=== PATIENT | male | born 1995 | race Caucasian/White ===

== ENCOUNTER 2016-07-30 15:40 | Emergency (ER) | payer OTHER ==
[2016-07-30 16:05] VITALS: BP 134/75
--- NOTE | 2016-07-30 16:12 | UC ---
Throat Pain/Nasal Nando HPI - HPI Summary HPI Summary: SORE THROAT, SWOLLEN TONSILS SINCE YESTERDAY. MILD FEVER. BILATERAL EAR ACHE. - History of Current Complaint Chief Complaint: UCRespiratory Stated Complaint: SORE THROAT Time Seen by Provider: 07/30/16 15:42 Hx Obtained From: Patient, Family/Brick [employer] Onset/Duration: Gradual Onset, Lasting Days, Still Present Severity: Moderate Cough: None Associated Signs & Symptoms: Positive: Dysphagia, Hoarseness, Fever - Epiglottits Risk Factors Epiglottis Risk Factors: Negative - Allergies/Home Medications Allergies/Adverse Reactions: Allergies Allergy/AdvReac Type Severity Reaction Status Date / Time No Known Allergies Allergy Verified 07/30/16 15:52 Home Medications: Home Medications Acetaminophen [Acetaminophen Extra Stren] 1,000 mg PO PRN 07/30/16 [History] Ibuprofen [Ibuprofen 200 MG] 400 mg PO PRN 07/30/16 [History] [id number] [DAY TIME/NITE TIME COLD (Liquid)] 1 mis PO PRN 07/30/16 [History] PMH/Surg Hx/FS Hx/Imm Hx Previously Healthy: Yes GI/ History Of: Reports: Ulcer - stomach - Surgical History Surgical History: None - Family History Known Family History: Negative: Respiratory Disease - Social History Occupation: Employed Full-time Lives: With Family Alcohol Use: Weekly Substance Use Type: Marijuana Substance Use Comment - Amount & Last Used: every day Smoking Status (MU): Heavy Every Day Tobacco Smoker Type: Cigarettes Amount Used/How Often: 1/2 - 1 ppd Length of Time of Smoking/Using Tobacco: since age 13 Have You Smoked in the Last Year: Yes Review of Systems Constitutional: Fever Skin: Negative Eyes: Negative ENT: Sore Throat, Ear Ache Respiratory: Negative Cardiovascular: Negative Gastrointestinal: Negative Genitourinary: Negative Motor: Negative Neurovascular: Negative Musculoskeletal: Negative Neurological: Negative Psychological: Negative All Other Systems Reviewed And Are Negative: Yes Physical Exam Triage Information Reviewed: Yes Appearance: No Pain Distress, Well-Nourished, Ill-Appearing - MILDLY Vital Signs: Initial Vital Signs Temp 99.6 F 07/30/16 15:45 Pulse 75 07/30/16 15:45 Resp 18 07/30/16 15:45 BP 134/75 07/30/16 15:45 Pulse Ox 97 07/30/16 15:45 Vital Signs Reviewed: Yes Eye Exam: Normal ENT: Positive: Hearing grossly normal, Pharyngeal erythema, TMs normal, Tonsillar swelling, Tonsillar exudate Dental Exam: Normal Neck exam: Normal Neck: Positive: Supple, Nontender, No Lymphadenopathy Respiratory Exam: Normal Respiratory: Positive: Chest non-tender, Lungs clear, Normal breath sounds, No respiratory distress Cardiovascular Exam: Normal Cardiovascular: Positive: RRR, No Murmur Abdominal Exam: Normal Musculoskeletal Exam: Normal Neurological Exam: Normal Psychological Exam: Normal Skin Exam: Normal Throat Pain/Nasal Course/Dx - Differential Dx/Diagnosis Differential Diagnosis/HQI/PQRI: Pharyngitis, Sinusitis, Tonsillitis, URI Provider Diagnoses: STREP TONSILLITIS Discharge - Discharge Plan Condition: Stable Disposition: HOME Prescriptions: Amoxicillin/Clavulanate TAB* [Augmentin TAB 875*] 875 mg PO BID #20 tab Patient Education Materials: Strep Throat (ED) Forms: *Work Release Referrals: MEG Ordoñez [Primary Care Provider] -
== END 2016-07-30 16:12 | disposition home or self-care (01) ==
LOC: UCCORT 15:40
DX: J03.00 Acute streptococcal tonsillitis, unspecified (principal); F12.90 Cannabis use, unspecified, uncomplicated; F17.210 Nicotine dependence, cigarettes, uncomplicated
CPT/HCPCS: 87651; 99202; G0463

== ENCOUNTER 2016-09-03 09:44 | Emergency (ER) | payer OTHER ==
[2016-09-03] MEDS ORDERED: Al Hydrox/Mg Hydrox/Simet LIQ* 30 ML UDC PO ONE (10:27)
[2016-09-03 10:28] VITALS: BP 106/71
[2016-09-03] MEDS ORDERED: Lidocaine 2% VISCOUS* 15 ML UDC PO ONE (10:28)
--- NOTE | 2016-09-03 10:54 | UC ---
Abdominal Pain Male HPI - HPI Summary HPI Summary: Patient with a history of peptic ulcer presents to with gnawing intermittent pain over the epigastric region since this morning. He notes to eating hot sauce last evening and while previously on Prilosec for his symptoms, he has not taken his medication for several months. His MD was in [facility] and recently moved here and currently does not have a PCP. He took the Prilosec for 5 months with relief. He notes to associated nausea with his epigastric pain. Denies any other abdominal pain. Takes no medications and is otherwise healthy. Denies V/C/D. - History of Current Complaint Chief Complaint: GI Stated Complaint: ABDOMINAL PAIN,VOMITING Time Seen by Provider: 09/03/16 10:08 Hx Obtained From: Patient Onset/Duration: Sudden Onset Severity Initially: Moderate Severity Currently: Moderate Pain Intensity: 7 Pain Scale Used: 0-10 Numeric Location: Epigastric Radiates: No Character: Aching, Burning, Tearing Aggravating Factor(s):: Food Alleviating Factor(s): Nothing Associated Signs And Symptoms: Positive: Other - nausea - Risk Factors Testicular Torsion: Negative Cardiac Risk Factors: Negative - Allergies/Home Medications Allergies/Adverse Reactions: Allergies Allergy/AdvReac Type Severity Reaction Status Date / Time No Known Allergies Allergy Verified 09/03/16 10:05 Home Medications: Home Medications Cyanocobalamin TAB* [Vitamin B12 TAB*] 1 tab DAILY 09/03/16 [History Confirmed 09/03/16] PMH/Surg Hx/FS Hx/Imm Hx Previously Healthy: Yes - Surgical History Surgical History: None - Family History Known Family History: Negative: Respiratory Disease - Social History Occupation: Unemployed, Employed Full-time Lives: With Family Alcohol Use: Weekly Alcohol Amount: Weekend Substance Use Type: Marijuana Substance Use Comment - Amount & Last Used: every day Smoking Status (MU): Heavy Every Day Tobacco Smoker Type: Cigarettes Amount Used/How Often: 1/2 - 1 ppd Length of Time of Smoking/Using Tobacco: since age 13 Have You Smoked in the Last Year: Yes - Immunization History Most Recent Influenza Vaccination: NONE 2015 Most Recent Tetanus Shot: UTD Most Recent Pneumonia Vaccination: N/A Review of Systems Constitutional: Negative Skin: Negative Respiratory: Negative Cardiovascular: Negative Gastrointestinal: Abdominal Pain - epigastric pain Motor: Negative Neurovascular: Negative Musculoskeletal: Negative Psychological: Negative All Other Systems Reviewed And Are Negative: Yes Physical Exam Triage Information Reviewed: Yes Appearance: Well-Appearing, No Pain Distress, Well-Nourished Vital Signs: Initial Vital Signs Temp 96.7 F 09/03/16 10:06 Pulse 74 09/03/16 10:06 Resp 16 09/03/16 10:06 BP 106/71 09/03/16 10:06 Pulse Ox 99 09/03/16 10:06 Vital Signs Reviewed: Yes Eye Exam: Normal Eyes: Positive: Conjunctiva Clear Neck exam: Normal Neck: Positive: Nontender, No Lymphadenopathy Respiratory Exam: Normal Respiratory: Positive: Chest non-tender, Lungs clear Cardiovascular Exam: Normal Cardiovascular: Positive: RRR Musculoskeletal Exam: Normal Musculoskeletal: Positive: Strength Intact Psychological Exam: Normal Psychological: Positive: Normal Response To Family Skin Exam: Normal Abd Pain Male Course/Dx - Course Course Of Treatment: Patient presents with epigastric pain not relieved with negar selzer. Hx of peptic ulcer. No medications currently and recently moved from [facility] - with no primary care. Prilosec, zofran and maalox prescribed. Patient OK with discharge and will seek PCP at [facility]. Improvement with maalox and viscous lidocaine in office. - Differential Dx/Clinical Impression Differential Diagnosis/HQI/PQRI: Other - peptic ulcer, gastric ulcer, nausea Provider Diagnoses: Peptic Ulcer Discharge - Discharge Plan Condition: Stable Disposition: HOME Prescriptions: Al Hydrox/Mg Hydrox/Simet LIQ* [Maalox Plus*] 30 ml PO Q6H PRN #300 udc MDD 120 PRN Reason: Heartburn Omeprazole CAP* [Prilosec CAP* 20 MG] 20 mg PO DAILY #30 cap. Ondansetron ODT TAB* [Zofran 4 MG Odt TAB*] 4 mg PO Q6H PRN #12 tab.odt MDD 4 PRN Reason: Nausea Patient Education Materials: Peptic Ulcer (ED), Diet for Stomach Ulcers and Gastritis (ED) Referrals: MEG Ordoñez [Primary Care Provider] - Additional Instructions: Follow up with PCP PAYAM If you develop worsening symptoms, return to UC immediately. Maalox for breakthrough pain related to ulcer/GERD symptoms Zofran as needed for any nausea Prilosec daily until follow up with PCP
== END 2016-09-03 10:57 | disposition home or self-care (01) ==
LOC: UCCORT 09:44
DX: K27.9 Peptic ulcer, site unspecified, unspecified as acute or chronic, without hemorrhage or perforation (principal); F17.210 Nicotine dependence, cigarettes, uncomplicated
CPT/HCPCS: 99212; A9270-GY; G0463

== ENCOUNTER 2017-02-13 11:25 | Emergency (ER) | payer OTHER ==
[2017-02-13 11:51] VITALS: BP 130/65
--- NOTE | 2017-02-13 12:26 | UC ---
Lower Extremity/Ankle HPI - HPI Summary HPI Summary: pt c/o left great toe pain s/p stubbing toe. Pt states he has been trying to "rip" the toe nail off of left great toe as he reports that it has "been ripped off" . - History of Current Complaint Chief Complaint: UCLowerExtremity Stated Complaint: LEFT BIG TOE SWOLLEN Time Seen by Provider: 02/13/17 11:55 Hx Obtained From: Patient Onset/Duration: Sudden Onset, Lasting Days, Still Present, Worse Since - onset Severity Initially: Moderate Severity Currently: Moderate Aggravating Factor(s): Standing, Ambulation Alleviating Factor(s): Rest, Elevation - Allergies/Home Medications Allergies/Adverse Reactions: Allergies Allergy/AdvReac Type Severity Reaction Status Date / Time No Known Allergies Allergy Verified 02/13/17 11:51 Home Medications: Home Medications NK [No Home Medications Reported] 02/13/17 [History Confirmed 02/13/17] PMH/Surg Hx/FS Hx/Imm Hx Previously Healthy: Yes - Surgical History Surgical History: None - Family History Known Family History: Negative: Respiratory Disease - Social History Occupation: Employed Full-time Lives: With Family Alcohol Use: Weekly Alcohol Amount: Weekend Substance Use Type: Marijuana Substance Use Comment - Amount & Last Used: every day Smoking Status (MU): Heavy Every Day Tobacco Smoker Type: Cigarettes Amount Used/How Often: 1/2 - 1 ppd Length of Time of Smoking/Using Tobacco: since age 13 Have You Smoked in the Last Year: Yes - Immunization History Most Recent Influenza Vaccination: NOT CURRENT Most Recent Tetanus Shot: UTD Most Recent Pneumonia Vaccination: N/A Review of Systems Constitutional: Negative Skin: Other - erythema, left great toe, swelling left great toe Eyes: Negative ENT: Negative Respiratory: Negative Cardiovascular: Negative Gastrointestinal: Negative Genitourinary: Negative Motor: Decreased ROM - left great toe Neurovascular: Negative Musculoskeletal: Decreased ROM - left great toe,, Edema - left great toe, Other : - mild erythema left great toe Neurological: Negative Psychological: Negative Is Patient Immunocompromised?: No All Other Systems Reviewed And Are Negative: Yes Physical Exam Triage Information Reviewed: Yes Appearance: Well-Appearing Vital Signs: Initial Vital Signs Temp 98.1 F 02/13/17 11:44 Pulse 71 02/13/17 11:44 Resp 18 02/13/17 11:44 BP 130/65 02/13/17 11:44 Pulse Ox 98 02/13/17 11:44 Vital Signs Reviewed: Yes Eye Exam: Normal ENT Exam: Normal Dental Exam: Normal Neck exam: Normal Respiratory Exam: Normal Musculoskeletal Exam: Other Musculoskeletal: Positive: ROM Limited @ - left great toe, Edema @ - left great toe,, Other: - lefyt great toe nail, is lifted off nail bed, Neurological Exam: Normal Psychological Exam: Normal Skin Exam: Other - mild erythema, left great toe Lower Extremity Course/Dx - Course Course Of Treatment: IMPRESSION: NO ACUTE OSSEOUS INJURY. IF SYMPTOMS PERSIST, RECOMMEND REPEAT IMAGING. PLAIN FILM FINDINGS OF OSTEOMYELITIS ARE RELATIVELY LATE FINDINGS. IF THERE IS PERSISTENT. CLINICAL CONCERN FOR OSTEOMYELITIS, RECOMMEND CORRELATION WITH FOLLOWUP IMAGING,. THREE-PHASE BONE SCANNING, WHITE BLOOD CELL SCAN, AND/OR MRI OF THE AFFECTED REGION. - Differential Dx/Diagnosis Differential Diagnosis/HQI/PQRI: Fracture (Closed), Osteomyelitis Provider Diagnoses: possible osteomylitis. Pt directed to go to ER for further evaluation and testing. IMPRESSION: NO ACUTE OSSEOUS INJURY. IF SYMPTOMS PERSIST, RECOMMEND REPEAT IMAGING. PLAIN FILM FINDINGS OF OSTEOMYELITIS ARE RELATIVELY LATE FINDINGS. IF THERE IS PERSISTENT. CLINICAL CONCERN FOR OSTEOMYELITIS, RECOMMEND CORRELATION WITH FOLLOWUP IMAGING,. THREE-PHASE BONE SCANNING, WHITE BLOOD CELL SCAN, AND/OR MRI OF THE AFFECTED REGION. Discharge - Discharge Plan Condition: Stable Disposition: HOME Patient Education Materials: Osteomyelitis (ED) Referrals: MEG Ordoñez [Primary Care Provider] - Additional Instructions: Please go directly to have further evaluation and testing immediately. [facility].
--- NOTE | 2017-02-13 12:27 | RAD ---
HISTORY: Left toe trauma, possible infection COMPARISONS: None VIEWS: 3, Frontal, lateral, and oblique views of the first digit of left foot FINDINGS: BONE DENSITY: Normal. BONES: There is no displaced fracture. There is no appreciable erosion or periosteal reaction. JOINTS: There is no arthropathy. ALIGNMENT: There is no dislocation. SOFT TISSUES: Unremarkable. OTHER FINDINGS: None. IMPRESSION: NO ACUTE OSSEOUS INJURY. IF SYMPTOMS PERSIST, RECOMMEND REPEAT IMAGING. PLAIN FILM FINDINGS OF OSTEOMYELITIS ARE RELATIVELY LATE FINDINGS. IF THERE IS PERSISTENT CLINICAL CONCERN FOR OSTEOMYELITIS, RECOMMEND CORRELATION WITH FOLLOWUP IMAGING, THREE-PHASE BONE SCANNING, WHITE BLOOD CELL SCAN, AND/OR MRI OF THE AFFECTED REGION.
== END 2017-02-13 12:48 | disposition home or self-care (01) ==
LOC: UCCORT 11:25
DX: M79.675 Pain in left toe(s) (principal); F17.210 Nicotine dependence, cigarettes, uncomplicated
CPT/HCPCS: 99213; G0463

== ENCOUNTER 2017-10-25 17:40 | Emergency (ER) | payer SELFPAY ==
[2017-10-25 18:45] VITALS: BP 132/79
--- NOTE | 2017-10-25 18:46 | UC ---
Hand/Wrist HPI - HPI Summary HPI Summary: 22 y/o male presents to the urgent care accompany by girlfriend c/o Rt hand pain s/p punching out a tree around 1630pm today. Pt states he has Hx of a boxer fracture in the same hand about 6 years ago. Pt states he also has an abrasion at the base of RT ring finger w/ swelling. Pain is 8/10. 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 Pt is UTD w/ Tetanus vaccine. Pt has not taken anything for pain, only applied iced. Pt denies numbness or tingling sensation over the RT hand, SOB, chest pain, abdominal pain, N/V/D - History Of Current Complaint Chief Complaint: UCUpperExtremity Stated Complaint: RIGHT HAND INJURY Time Seen by Provider: 10/25/17 18:38 Hx Obtained From: Patient ?: No Onset/Duration: Sudden Onset, Lasting Hours - 2 hrs, Still Present Severity Initially: Moderate Severity Currently: Moderate Pain Intensity: 8 Pain Scale Used: 0-10 Numeric Character Of Pain: Sharp Aggravating Factor(s): Movement, Lifting, Flexion, Pulling Alleviating Factor(s): Rest, Ice Associated Signs And Symptoms: Positive: Swelling, Other - abrasion over the 4th metacarpal. Negative: Redness, Bruising, Fever, Numbness/Tingling Related History: Dominant Hand Right - Allergies/Home Medications Allergies/Adverse Reactions: Allergies Allergy/AdvReac Type Severity Reaction Status Date / Time No Known Allergies Allergy Verified 10/25/17 18:38 PMH/Surg Hx/FS Hx/Imm Hx Previously Healthy: Yes - Pt denies PMHX - Surgical History Surgical History: None - Family History Known Family History: Positive: Hypertension Negative: Respiratory Disease - Social History Occupation: Employed Full-time Lives: With Family Alcohol Use: Rare Alcohol Amount: Weekend Substance Use Type: Marijuana Substance Use Comment - Amount & Last Used: everyday Smoking Status (MU): Heavy Every Day Tobacco Smoker Type: Cigarettes Amount Used/How Often: 1/2 ppd Length of Time of Smoking/Using Tobacco: since age 13 Have You Smoked in the Last Year: Yes - Immunization History Most Recent Influenza Vaccination: NOT CURRENT Most Recent Tetanus Shot: UTD Most Recent Pneumonia Vaccination: N/A Vaccination Up to Date: Yes Review of Systems Constitutional: Negative Skin: Other - abrasion over the 4th metacarpal Eyes: Negative ENT: Negative Respiratory: Negative Cardiovascular: Negative Gastrointestinal: Negative Genitourinary: Negative Motor: Negative Neurovascular: Negative Musculoskeletal: Decreased ROM - RT hand, Other: - RT hand pain s/p punching out a tree Neurological: Negative Psychological: Negative Is Patient Immunocompromised?: No All Other Systems Reviewed And Are Negative: Yes Physical Exam - Summary Physical Exam Summary: Vital Signs Reviewed: Yes General: Well-Appearing, No Pain Distress, Well-Nourished male w/o any apparent pain distress Eyes: Positive: Conjunctiva Clear - PERRLA, EOMI ENT: Positive: Normal ENT inspection, Hearing grossly normal, Pharynx normal, TMs normal, Uvula midline Neck: Positive: Supple, Nontender, No Lymphadenopathy Respiratory: Positive: Chest non-tender, Lungs clear, Normal breath sounds, No respiratory distress Cardiovascular: Positive: RRR, No Murmur, Pulses Normal, Brisk Capillary Refill Abdomen Description: Positive: Nontender, No Organomegaly, Soft. Negative: CVA Tenderness (R), CVA Tenderness (L) Bowel Sounds: Positive: Present Musculoskeletal: Positive: Strength Intact, Other: Neurological Exam: Normal Musculoskeletal: Positive: Rt hand is without obvious asymmetry or mild deformity at the base of 4th metacarpal when compared to the L hand. Base of R # 4th phalanx with mild ecchymosis and swelling and abrasion w/o anyy obvious deformity. No bony crepitus. Point tenderness over dorsal side of base of the RT 4th and 5th metacarpals. Decreased ROM odue to pain. Motor/sensory function of ulnar, radial, median nerves intact. Ulnar and radial pulses intact. Capillary refill intact. Psychological Exam: Normal Skin Exam: Normal. Positive skin abrasion over 4th MTCPJ w/ tenderness to palpation and swelling. FROM of 4th phalanx, capillary refill brisk, pulses WNL , sensation intact. Triage Information Reviewed: Yes Vital Signs: Initial Vital Signs Temp 99.1 F 10/25/17 18:38 Pulse 65 10/25/17 18:38 Resp 16 10/25/17 18:38 BP 132/79 10/25/17 18:38 Pulse Ox 97 10/25/17 18:38 Hand/Wrist Course/Dx - Course Course Of Treatment: 22 y/o male presents to the urgent care accompany by girlfriend c/o Rt hand pain s/p punching out a tree around 1630pm today. Pt states he has Hx of a boxer fracture in the same hand about 6 years ago. Pt states he also has an abrasion at the base of RT ring finger w/ swelling. Pain is 8/10. 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 Pt is UTD w/ Tetanus vaccine. Pt has not taken anything for pain, only applied iced. Pt denies numbness or tingling sensation over the RT hand, SOB, chest pain, abdominal pain, N/V/D. Hx obtained. RT hand X-ray ordered: Impression: Probably minimally displaced fracture at the base of RT 4th metacarpal. Possible boxer fracture. Pt's symptosm discussed w/ Dr Slaughter and he recommended ulnar gutter splint. Pts Rt hand immobilized with a orhtoglass ulnar gutter splint by me. There was no neurovascular compromise after splint. Pt given shoulder sling for comfort and Advised RICE: Rest, Ice, elevation, Rx Ibuprofen PO for pain and swelling. Pt strongly advised to f/u with Orthopedic Dr Bennett in 2-3 days for further management. Pt understood and agreed w/ plan of care. - Differential Dx/Diagnosis Differential Diagnosis/HQI/PQRI: Contusion, Fracture, Puncture Wound, Sprain, Strain Provider Diagnoses: 1- RT hand pain s/p injury. 2- Minimally displaced fracture at the base of RT 4th metacarpal Discharge - Sign-Out/Discharge Documenting (check all that apply): Patient Departure - D/c home - Discharge Plan Condition: Stable Disposition: HOME Prescriptions: Ibuprofen TAB* [Motrin TAB* 800 MG] 800 mg PO Q6H PRN #30 tab PRN Reason: Pain Patient Education Materials: Hand Fracture (ED), Boxer Fracture (ED) Forms: *Work Release Referrals: Radha Nolasco MD [Primary Care Provider] - 1 Week Makenna Bennett MD [Medical Doctor] - 2 Days Additional Instructions: 1-Please take medications as directed to alleviate pain and swelling. 2-Please apply ice, keep your hand immobilized with the splint and shoulder sling. Avoid heavy lifting. 3- Please f/u with Orthopedic DR Bennett in 2 days for further evaluation and treatment on your hand fracture. - Billing Disposition and Condition Condition: STABLE Disposition: Home
[2017-10-25] MEDS ORDERED: Ibuprofen TAB* 400 MG PO ONE (18:53)
--- NOTE | 2017-10-25 19:13 | RAD ---
HISTORY: RT hand pain w/ abrasion s/p punching a tree COMPARISONS: None VIEWS: 2, Frontal and lateral views of the right hand FINDINGS: BONE DENSITY: Normal. BONES: There is a probable minimally displaced fracture of the base of the fourth metacarpal JOINTS: There is no arthropathy. ALIGNMENT: There is no dislocation. SOFT TISSUES: Unremarkable. OTHER FINDINGS: None. IMPRESSION: PROBABLY MINIMALLY DISPLACED FRACTURE OF THE BASE OF THE FOURTH METACARPAL.
== END 2017-10-25 20:03 | disposition home or self-care (01) ==
LOC: UCCORT 17:40
DX: S62.314A Displaced fracture of base of fourth metacarpal bone, right hand, initial encounter for closed fracture (principal); W22.09XA Striking against other stationary object, initial encounter; Y93.9 Activity, unspecified; Y92.9 Unspecified place or not applicable; F17.210 Nicotine dependence, cigarettes, uncomplicated
CPT/HCPCS: 99213; A9270-GY; G0463

== ENCOUNTER 2018-03-04 14:59 | Emergency (ER) | payer SELFPAY ==
[2018-03-04 15:35] VITALS: BP 143/76
--- NOTE | 2018-03-04 17:21 | UC ---
Dental HPI - HPI Summary HPI Summary: 22-year-old male presents with one-week history of left lower molar pain. States he has an impacted wisdom tooth that has given him some occasional discomfort. Over the last week he has had some increasingly worse pain and swelling. Yesterday he noticed some drainage from around the tooth. Denies fever, chills, trismus, dysphagia, or difficulty breathing. Does not have a dental appointment at this time. - History of Current Complaint Chief Complaint: UCDentalProblem Stated Complaint: DENTAL PAIN Time Seen by Provider: 03/04/18 16:51 Hx Obtained From: Patient Pain Intensity: 6 Dental: 1 - Impacted wisdom tooth with mild gingival erythema. No induration, fluctuance, or drainage noted. - Allergies/Home Medications Allergies/Adverse Reactions: Allergies Allergy/AdvReac Type Severity Reaction Status Date / Time No Known Allergies Allergy Verified 03/04/18 15:33 PMH/Surg Hx/FS Hx/Imm Hx Previously Healthy: Yes - Denies significant PMH - Surgical History Surgical History: None - Family History Known Family History: Positive: Non-Contributory - Social History Occupation: Employed Full-time Lives: With Family Alcohol Use: None Alcohol Amount: Weekend, MAYBE 1-2 DRINKS/MONTH Substance Use Type: Marijuana Substance Use Comment - Amount & Last Used: daily Smoking Status (MU): Heavy Every Day Tobacco Smoker Type: Cigarettes Amount Used/How Often: 1/2 ppd SINCE AGE 18 Length of Time of Smoking/Using Tobacco: since age 13 Have You Smoked in the Last Year: Yes Household Exposure Type: Cigarettes - Immunization History Most Recent Influenza Vaccination: NOT CURRENT Most Recent Tetanus Shot: UTD Most Recent Pneumonia Vaccination: N/A Vaccination Up to Date: Yes Review of Systems All Other Systems Reviewed And Are Negative: Yes Constitutional: Negative: Fever, Chills ENT: Positive: Dental Pain. Negative: Sore Throat, Ear Ache, Nasal Discharge, Sinus Congestion, Sinus Pain/Tenderness, Other - Trismus Respiratory: Negative: Shortness Of Breath Is Patient Immunocompromised?: No Physical Exam - Summary Physical Exam Summary: GENERAL APPEARANCE: Well developed, well nourished, alert and cooperative, and appears to be in no acute distress. HEAD: Atraumatic. normocephalic. Mild left-sided facial swelling. EARS: External auditory canals and tympanic membranes clear, hearing grossly intact. NOSE: No nasal discharge. THROAT: Pharynx normal. No inflammation, swelling, exudate, or lesions. Partially impacted left 3rd lower molar with gingival erythema. No induration, fluctuance, or drainage noted. No trisumus. NECK: Neck supple, non-tender without lymphadenopathy. CARDIAC: Normal S1 and S2. No S3, S4 or murmurs. Rhythm is regular. There is no peripheral edema, cyanosis or pallor. Extremities are warm and well perfused. Capillary refill is less than 2 seconds. LUNGS: Clear to auscultation and percussion without rales, rhonchi, wheezing or diminished breath sounds. ABDOMEN: Positive bowel sounds. Soft, nondistended, nontender. No guarding or rebound. No masses or hepatosplenomegally. SKIN: Skin normal color, texture and turgor with no lesions or eruptions. Triage Information Reviewed: Yes Vital Signs: Initial Vital Signs Temp 97.5 F 03/04/18 15:29 Pulse 87 03/04/18 15:29 Resp 16 03/04/18 15:29 BP 143/76 03/04/18 15:29 Pulse Ox 99 03/04/18 15:29 Vital Signs Reviewed: Yes Dental Complaint Course/Dx - Course Course Of Treatment: 22-year-old male presents with one-week history of left lower molar pain. States he has an impacted wisdom tooth that has given him some occasional discomfort. Over the last week he has had some increasingly worse pain and swelling. Yesterday he noticed some drainage from around the tooth. Denies fever, chills, trismus, dysphagia, or difficulty breathing. Does not have a dental appointment at this time. Afebrile. Vital signs stable. Exam reveals some mild left-sided facial swelling. Molar #17 is partially impacted with some mild gingival erythema and swelling. No induration fluctuance or drainage was noted at this time. Will treat with a ten -day course of amoxicillin 500 mg twice a day for possible abscess. He has been provided a prescription for naproxen 500 mg 1 tab every 12 hours as needed for pain. Recommending saltwater rinses after meals and at bedtime to remove any debris and encourage any drainage. He is to schedule an appointment with a dentist at next available appointment. Warning symptoms were reviewed with the patient. Verbalizes understanding and agrees with plan of care - Differential Dx/Diagnosis Differential Diagnosis/Dx: Dental Abscess, Dental Caries, Fractured Tooth, Odontogenic Pain, Peridontic Disease Provider Diagnosis: Dental abscess Discharge - Sign-Out/Discharge Documenting (check all that apply): Patient Departure All imaging exams completed and their final reports reviewed: No Studies - Discharge Plan Condition: Stable Disposition: HOME Prescriptions: Amoxicillin 500 mg PO BID #20 capsule Naproxen [Naproxen 500 mg tab] 500 mg PO Q12HR #30 tablet Patient Education Materials: Dental Abscess (ED) Forms: *Work Release Referrals: Radha Nolasco MD [Primary Care Provider] - Additional Instructions: Start amoxicillin 500 mg BID x 10 days. Use salt water rinses several times a day to help remove debris and encourage drainage. Take naproxen 500 mg 1 tab every 12 hours with food as needed for pain. Make an appointment with the dentist at the next available appointment. Seek immediate medical attention in the emergency room if you develop fever greater than 100.5 F, have increased facial swelling, are unable to open your mouth, have difficulty swallowing, difficulty breathing, or any worsening of symptoms. - Billing Disposition and Condition Condition: STABLE Disposition: Home - Attestation Statements Provider Attestation: I was available for consult. This patient was seen by the [facility]. The patient was not presented to, seen by, or examined by me. -Asher
== END 2018-03-04 17:33 | disposition home or self-care (01) ==
LOC: UCCORT 14:59
DX: K04.7 Periapical abscess without sinus (principal); F17.210 Nicotine dependence, cigarettes, uncomplicated
CPT/HCPCS: 99212; G0463